=== PATIENT | female | born 1955 | race Caucasian/White ===

== ENCOUNTER → 2021-12-26 | Outpatient (CLI) | payer MEDICARE ==
[~2021-12-26] MED LIST: HYDR118S10 PO; OMEG1CAP26 PO; SULF1TAB7 PO
--- NOTE | 2021-12-26 18:01 | Diagnostic Imaging Report ---
PROCEDURE: MRI pelvis without contrast. TECHNIQUE: Multiplanar, multisequence MRI of the pelvis was performed without contrast. INDICATION: Spinal degenerative disease. Spinal and pelvic pain. No known discrete injury. COMPARISON: I have no relevant comparison. Disc desiccation and bulge at the L5-S1 disc results in mild canal and mild biforaminal stenosis. L5 stature anatomic. The lumbosacral level showed normal curvature and alignment. No suspicious sacrococcygeal edema or marrow signal pathology. The SI joints showed some degenerative change with no acute pathology. Iliac wings unremarkable. The femoral heads maintain normal sphericity. There are arthritic changes to the bilateral hips. Mild to moderate with no stress type injury or evidence for necrosis. No fracture pattern. No bony avulsion. No evidence for soft tissue avulsion. Gluteal attachments appeared unremarkable. The hamstrings insertions unremarkable. The superior and inferior pubic rami unremarkable. There is no intra or extraperitoneal fluid or hemorrhage. No pelvic inflammatory changes are found. The uterus is heterogeneous and lobulated, likely reflective of underlying fibroids. Lower abdominal wall appeared intact. No inguinal hernia, mass or adenopathy. IMPRESSION: 1. Degenerative changes with no acute pelvic pathology. No marrow edema, bony destructive process, necrosis or fluid collections. 2. Presumptive uterine fibroids with no acute adnexal lesion. 3. At L5-S1 there is spondylosis with mild stenosis. Dictated by: Dictated on workstation # [id number]
== END ==
LOC: RAD 12:47
PROVIDERS: ATTEND Nurse Practitioner
DX: M47.816 Spondylosis without myelopathy or radiculopathy, lumbar region (principal); M47.817 Spondylosis without myelopathy or radiculopathy, lumbosacral region; M48.07 Spinal stenosis, lumbosacral region
CPT/HCPCS: 72195

== ENCOUNTER → 2022-07-20 | Outpatient (CLI) | payer MEDICARE | LOC: CARD 13:59 | PROVIDERS: ATTEND Internal Medicine Cardiovascular Disease | DX: I10 Essential (primary) hypertension (principal) | CPT/HCPCS: 93306 ==

== ENCOUNTER → 2022-08-15 | Outpatient (CLI) | payer MEDICARE ==
[~2022-08-15] VITALS: Ht 157 cm; Wt 86.0 kg
[~2022-08-15] MED LIST changes: +CATHETER FLUSH 10 ML SYR IVP PRN; +REGADENOSON 0.4 MG/5 ML SYR (LEXISCAN) IV ONE
[2022-08-15 13:18] VITALS: BP 141/79
--- NOTE | 2022-08-15 15:41 | Cardiology Stress Test Report ---
Stress Test Report Date of Procedure/Referring: Date of Procedure: Aug 15, 2022 [facility] Admitting Physician Admitting Physician: Attending Physician: Harman Hernandez MD Baseline Heart Rate: 79 Baseline Blood Pressure: Blood Pressure Systolic: 141 Blood Pressure Diastolic: 79 Baseline Vitals Vital Signs Date Time Temp Pulse Resp B/P (MAP) Pulse Ox O2 Delivery O2 Flow Rate FiO2 08/15/22 13:18 79 141/79 (99) 97 Baseline EKG: Baseline EKG: NSR Summary After explaining the procedure to the patient, she signed a consent and then brought to the stress nuclear laboratory. Patient received 0.4 mg Lexiscan for stress test, ECG, heart rate and blood pressure were monitored continuously. Resting and stress dose of radio tracer were injected, imaging was acquired and reviewed in short axis, horizontal long axis and vertical long axis views. TID: 1.11 SSS: 0 SDS: 0 EF: 58 Patient tolerated Lexiscan well No significant ischemia or infarction noted on SPECT images Normal left ventricular size, ejection fraction 58% Copy Copies To 1: [facility]/ HARMAN HERNANDEZ MD Aug 15, 2022 15:41
== END ==
LOC: CARD 12:00
PROVIDERS: ATTEND Internal Medicine Cardiovascular Disease
DX: I10 Essential (primary) hypertension (principal); I25.10 Atherosclerotic heart disease of native coronary artery without angina pectoris; R07.2 Precordial pain
CPT/HCPCS: 78452; 93017; A9502